=== PATIENT | male | born 1960 | race Caucasian/White ===

== ENCOUNTER 2021-06-30 09:53 | Emergency (ER) | payer BC, OTHER ==
[2021-06-30 10:01] VITALS: BP 148/79; PULSE 90; TEMP 98.1; BMI 27.3
[2021-06-30] MEDS ORDERED: ACETAMINOPHEN 325 MG TABLET (FP) PO ONE (10:46)
[2021-06-30] MEDS ORDERED: LIDOCAINE 5% TOPICAL PATCH TP ONE (10:46)
[2021-06-30] MEDS ORDERED: KETOROLAC TROMETHAMINE 60 MG/2 ML VIAL IM ONE (10:46)
[2021-06-30] MEDS ORDERED: ACETAMINOPHEN 325 MG TABLET (FP) ONE (11:07)
[2021-06-30] MEDS ORDERED: KETOROLAC TROMETHAMINE 30 MG/1 ML VIAL ONE (11:07)
== END 2021-06-30 12:31 | disposition home or self-care (01) ==
LOC: JER 09:53
PROC: 3E023GC Introduction of Other Therapeutic Substance into Muscle, Percutaneous Approach (ICD-10-PCS; principal; 2021-06-30)
DX: M54.5 Low back pain (principal)
CPT/HCPCS: 99284-25